=== PATIENT | male | born 1990 | race Caucasian/White ===

== ENCOUNTER 2018-05-22 10:25 | Emergency (ER) | payer MEDICAID ==
[~2018-05-22] VITALS: Ht 167.6 cm; Wt 83.0 kg
[2018-05-22 12:43] VITALS: BP 119/71
== END 2018-05-22 12:43 | disposition home or self-care (01) ==
LOC: ED 10:25
DX: S02.81XA Fracture of other specified skull and facial bones, right side, initial encounter for closed fracture (principal); S00.83XA Contusion of other part of head, initial encounter; S09.8XXA Other specified injuries of head, initial encounter; Y04.8XXA Assault by other bodily force, initial encounter; Y93.89 Activity, other specified; Y92.89 Other specified places as the place of occurrence of the external cause; Y99.8 Other external cause status